=== PATIENT | male | born 1985 | race Caucasian/White ===

== ENCOUNTER 2021-01-09 15:14 | Emergency (ER) | payer BC ==
[2021-01-09 15:44] LABS: #Basophils 0.1 thou/uL (0.0-0.2); #Eosinphils 0.8 thou/uL (0.0-0.7); #Lymphocytes 3.3 thou/uL (1.20-3.40); #Monocytes 2.8 thou/uL (0.11-0.59); #Neutrophils 12.8 thou/uL (1.40-6.50); %Basophils 0.5 % (0.0-1.0); %Lymphocytes 16.6 % (21.0-51.0); %Monocytes 14.3 % (0.0-10.0); %Neutrophils 64.7 % (42.0-75.0); Hemoglobin 15.8 g/dL (14.0-18.0); Mean Corpuscular HGB CONC 34.4 g/dL (32.0-36.0); Mean Corpuscular Hemoglobin 32.7 pg (27.0-31.0); Mean Corpuscular Volume 95.2 fL (78.0-98.0); Mean Platelet Volume 7.4 fL (7.4-10.4); Platelet Count 314 thou/uL (130-400); RBC Distribution Width 11.6 % (11.5-14.5); Red Blood Cell (RBC) Count 4.82 mill/uL (4.70-6.10); White Blood Cell (WBC) Count 19.8 thou/uL (4.8-10.8)
[2021-01-09 17:22] LABS: ALT (SGPT) 23 U/L (8-55); AST (SGOT) 18 U/L (5-34); Albumin 4.3 g/dL (3.5-5.0); Alkaline Phosphatase 62 U/L (40-110); Anion Gap 13 mmol/L (10-20); BUN (Urea Nitrogen) 24 mg/dL (8.9-20.6); Bilirubin, Total 0.4 mg/dL (0.2-1.2); Calc. Creatinine Clearance 0 mL/min (70-130); Calcium 9.5 mg/dL (7.8-10.44); Carbon Dioxide 24 mmol/L (22-29); Chloride 102 mmol/L (98-107); Globulin 3.2 g/dL (2.4-3.5); Glucose 97 mg/dL (70-105); Protein, Total 7.5 g/dL (6.0-8.3); Sodium 135 mmol/L (136-145)
== END 2021-01-09 18:45 | disposition home or self-care (01) ==
LOC: ERS 15:14
DX: J18.9 Pneumonia, unspecified organism (principal); F17.210 Nicotine dependence, cigarettes, uncomplicated
CPT/HCPCS: 36415; 71045; 80053; 84484; 85025; 93005; 94760

== ENCOUNTER 2021-01-25 00:24 | Emergency (ER) | payer BC | END 2021-01-25 00:57 | LOC: ERS 00:24 | DX: L24.5 Irritant contact dermatitis due to other chemical products (principal); T65.893A Toxic effect of other specified substances, assault, initial encounter; F17.210 Nicotine dependence, cigarettes, uncomplicated | CPT/HCPCS: 99283 ==

== ENCOUNTER 2021-04-19 12:33 | Inpatient (IN) | payer BC, SELFPAY ==
[2021-04-19 13:35] LABS: Hemoglobin 17.4 g/dL (14.0-18.0); Mean Corpuscular HGB CONC 34.8 g/dL (32.0-36.0); Mean Corpuscular Hemoglobin 32.8 pg (27.0-31.0); Mean Corpuscular Volume 94.4 fL (78.0-98.0); Mean Platelet Volume 7.4 fL (7.4-10.4); Platelet Count 270 thou/uL (130-400); RBC Distribution Width 11.7 % (11.5-14.5); Red Blood Cell (RBC) Count 5.29 mill/uL (4.70-6.10); White Blood Cell (WBC) Count 20.5 thou/uL (4.8-10.8)
[2021-04-19 13:47] LABS: Anion Gap 18 mmol/L (10-20); BUN (Urea Nitrogen) 14 mg/dL (8.9-20.6); Calc. Creatinine Clearance 0 mL/min (70-130); Calcium 9.8 mg/dL (7.8-10.44); Carbon Dioxide 20 mmol/L (22-29); Chloride 101 mmol/L (98-107); Glucose 105 mg/dL (70-105); Potassium 4.2 mmol/L (3.5-5.1); Sodium 135 mmol/L (136-145)
[2021-04-19 13:54] LABS: Band 30 % (5-11); Eosinophils 1 % (0-10); Lymphocytes 6 % (21-51); MDiff Complete? YES; Monocytes 16 % (0-10); Neutrophil 45 % (42-75); Platelet Morphology Comment Appears Adequate; RBC Morphology Normal; Reactive Lymphocytes 2 % (0-10)
[2021-04-19] MEDS ORDERED: Pantoprazole 40 MG VIAL ONE (14:49)
[2021-04-19] MEDS ORDERED: Cefepime 1 GM VIAL ONE (14:49)
[2021-04-19 15:17] LABS: Anion Gap 18 mmol/L (10-20); BUN (Urea Nitrogen) 15 mg/dL (8.9-20.6); Calc. Creatinine Clearance 0 mL/min (70-130); Carbon Dioxide 22 mmol/L (22-29); Chloride 98 mmol/L (98-107); Potassium 4.9 mmol/L (3.5-5.1); Sodium 133 mmol/L (136-145)
[2021-04-19 15:18] LABS: ALT (SGPT) 28 U/L (8-55); AST (SGOT) 29 U/L (5-34); Albumin 4.5 g/dL (3.5-5.0); Alkaline Phosphatase 74 U/L (40-110); Bilirubin, Total 0.5 mg/dL (0.2-1.2); Calcium 10.1 mg/dL (7.8-10.44); Globulin 4.2 g/dL (2.4-3.5); Glucose 106 mg/dL (70-105); Lipase 5 U/L (8-78); Protein, Total 8.7 g/dL (6.0-8.3)
[2021-04-19] MEDS ORDERED: Ondansetron PF 4 MG/2 ML Vial ONE (16:51)
[2021-04-19] MEDS ORDERED: Fentanyl 100 MCG/2 ML VIAL ONE (16:51)
[2021-04-19] MEDS ORDERED: VANCOMYCIN 2 GRAM/400 ML BAG 2 GM in Premix Bag 1 BAG IVPB SCH (17:15)
[2021-04-19] MEDS ORDERED: Guaifenesin DM 100-10/5 ML UDCUP PO PRN (19:43)
[2021-04-19] MEDS ORDERED: Ondansetron PF 4 MG/2 ML Vial IVP PRN (19:43)
[2021-04-19] MEDS ORDERED: Acetaminophen 325 MG TAB PO PRN (19:43)
[2021-04-19 20:30] LABS: SARS-CoV-2 NAA Rapid Test Not Detected (NotDetected)
[2021-04-19] MEDS: Sodium Chloride 0.9% 1,000 ML IV SCH (22:08)
[2021-04-19] MEDS: Famotidine/PF 20 mg/2ml Vial SLOW IVP SCH (22:13)
[2021-04-19] MEDS: Nicotine 14 MG PATCH TD SCH (22:40)
[2021-04-19] MEDS ORDERED: Morphine 2 MG/ML VIAL SLOW IVP PRN (22:51)
[2021-04-19] MEDS: Morphine 4 MG/ML VIAL SLOW IVP PRN (23:37)
[2021-04-19] MEDS ORDERED: Lactinex Tablet PO SCH (23:59)
[2021-04-20 00:24] VITALS: BMI 25.1
[2021-04-20] MEDS ORDERED: Cefepime 1 GM in Sodium Chloride 0.9% 100 ML IVPB SCH (03:00)
[2021-04-20] MEDS: Sodium Chloride 0.9% 1,000 ML IV SCH ×2 (05:07→08:50)
[2021-04-20 06:53] LABS: ALT (SGPT) 21 U/L (8-55); AST (SGOT) 18 U/L (5-34); Albumin 3.3 g/dL (3.5-5.0); Alkaline Phosphatase 54 U/L (40-110); Anion Gap 10 mmol/L (10-20); BUN (Urea Nitrogen) 13 mg/dL (8.9-20.6); Bilirubin, Total 0.2 mg/dL (0.2-1.2); Calc. Creatinine Clearance 124 mL/min (70-130); Calcium 8.6 mg/dL (7.8-10.44); Carbon Dioxide 23 mmol/L (22-29); Chloride 107 mmol/L (98-107); Globulin 2.7 g/dL (2.4-3.5); Glucose 103 mg/dL (70-105); Potassium 4.3 mmol/L (3.5-5.1); Sodium 136 mmol/L (136-145)
[2021-04-20] MEDS ORDERED: Vancomycin 1.5 GRAM/300 ML BAG 1.5 GM in Premix Bag 1 BAG IVPB SCH (08:00)
[2021-04-20] MEDS: Famotidine/PF 20 mg/2ml Vial SLOW IVP SCH ×2 (08:56→20:21)
[2021-04-20] MEDS: Lactinex Tablet PO SCH ×3 (09:01→20:21)
[2021-04-20] MEDS: Morphine 4 MG/ML VIAL SLOW IVP PRN ×2 (09:14→14:05)
[2021-04-20] MEDS: metroNIDAZOLE 500 MG in Premix Bag 1 BAG IVPB SCH ×2 (14:01→22:08)
[2021-04-20] MEDS: Nicotine 14 MG PATCH TD SCH (20:20)
[2021-04-21] MEDS: Sodium Chloride 0.9% 1,000 ML IV SCH ×3 (02:06→21:32)
[2021-04-21] MEDS: metroNIDAZOLE 500 MG in Premix Bag 1 BAG IVPB SCH ×3 (06:32→21:20)
[2021-04-21] MEDS: Lactinex Tablet PO SCH ×3 (09:20→21:15)
[2021-04-21] MEDS: traMADol HCl 50 MG TAB PO PRN ×2 (09:21→22:53)
[2021-04-21] MEDS: Famotidine/PF 20 mg/2ml Vial SLOW IVP SCH ×2 (09:22→21:20)
[2021-04-21 09:37] LABS: #Basophils 0.1 thou/uL (0.0-0.2); #Eosinphils 0.8 thou/uL (0.0-0.7); #Lymphocytes 2.4 thou/uL (1.20-3.40); #Monocytes 1.5 thou/uL (0.11-0.59); #Neutrophils 5.6 thou/uL (1.40-6.50); %Basophils 0.8 % (0.0-1.0); %Eosinophils 7.9 % (0.0-10.0); %Lymphocytes 23.1 % (21.0-51.0); %Monocytes 14.2 % (0.0-10.0); %Neutrophils 54.1 % (42.0-75.0); Hemoglobin 14.5 g/dL (14.0-18.0); Mean Corpuscular HGB CONC 33.2 g/dL (32.0-36.0); Mean Corpuscular Hemoglobin 31.6 pg (27.0-31.0); Mean Corpuscular Volume 95.2 fL (78.0-98.0); Mean Platelet Volume 7.5 fL (7.4-10.4); Platelet Count 277 thou/uL (130-400); RBC Distribution Width 11.6 % (11.5-14.5); Red Blood Cell (RBC) Count 4.59 mill/uL (4.70-6.10); White Blood Cell (WBC) Count 10.3 thou/uL (4.8-10.8)
[2021-04-21 09:55] LABS: ALT (SGPT) 33 U/L (8-55); AST (SGOT) 24 U/L (5-34); Albumin 3.5 g/dL (3.5-5.0); Alkaline Phosphatase 90 U/L (40-110); Anion Gap 10 mmol/L (10-20); BUN (Urea Nitrogen) 10 mg/dL (8.9-20.6); Bilirubin, Total 0.2 mg/dL (0.2-1.2); Calc. Creatinine Clearance 130 mL/min (70-130); Calcium 8.9 mg/dL (7.8-10.44); Carbon Dioxide 27 mmol/L (22-29); Chloride 104 mmol/L (98-107); Globulin 2.7 g/dL (2.4-3.5); Glucose 107 mg/dL (70-105); Potassium 4.5 mmol/L (3.5-5.1); Protein, Total 6.2 g/dL (6.0-8.3); Sodium 136 mmol/L (136-145)
[2021-04-21] MEDS ORDERED: Loperamide HCl 2 MG CAP PO PRN (14:53)
[2021-04-21] MEDS ORDERED: Loperamide HCl 2 MG CAP PO SCH (15:00)
[2021-04-21] MEDS: Nicotine 14 MG PATCH TD SCH (20:57)
[2021-04-22] MEDS: metroNIDAZOLE 500 MG in Premix Bag 1 BAG IVPB SCH (04:55)
[2021-04-22 08:20] VITALS: BP 105/67; TEMP 97.6
[2021-04-22] MEDS: Sodium Chloride 0.9% 1,000 ML IV SCH (08:46)
[2021-04-22] MEDS: Lactinex Tablet PO SCH (08:50)
[2021-04-22] MEDS: Famotidine/PF 20 mg/2ml Vial SLOW IVP SCH (08:51)
== END 2021-04-22 13:45 | disposition home or self-care (01) | DRG 872 ==
LOC: ERS 12:33 → ERHOLD 17:27 → T4-A 21:30
PROVIDERS: ADMIT Family Medicine; ATTEND Hospitalist
DX: A41.9 Sepsis, unspecified organism (principal); A09 Infectious gastroenteritis and colitis, unspecified; Z20.822 Contact with and (suspected) exposure to COVID-19; F17.210 Nicotine dependence, cigarettes, uncomplicated; F12.10 Cannabis abuse, uncomplicated; Z80.1 Family history of malignant neoplasm of trachea, bronchus and lung
CPT/HCPCS: 36415; 74177; 80048; 80053; 82274; 83605; 83690; 85025; 87040; 87045; 87046; 87324; 87427; 87449; 96365; 96375; C9113; J0692; J0744; J2270; J2405; J3010; J3370; J3490; J7050; S0028; U0002

== ENCOUNTER 2021-04-25 20:14 | Emergency (ER) | payer SELFPAY | END 2021-04-25 21:27 | disposition home or self-care (01) | LOC: ERS 20:14 | DX: A09 Infectious gastroenteritis and colitis, unspecified (principal); F17.210 Nicotine dependence, cigarettes, uncomplicated; Z79.899 Other long term (current) drug therapy | CPT/HCPCS: 99284 ==

== ENCOUNTER 2024-01-07 05:51 | Emergency (ER) | payer SELFPAY | END 2024-01-07 06:27 | disposition home or self-care (01) | LOC: ERS 05:51 | DX: L03.031 Cellulitis of right toe (principal); E11.9 Type 2 diabetes mellitus without complications; F17.210 Nicotine dependence, cigarettes, uncomplicated; Z55.6 Problems related to health literacy | CPT/HCPCS: 10060 ==